=== PATIENT | male | born 1970 | race Two or more races ===

== ENCOUNTER 2018-03-15 21:59 | Emergency (ER) | payer MEDICAID ==
[~2018-03-15] VITALS: Ht 162.6 cm; Wt 54.4 kg
[2018-03-15 22:20] VITALS: BP 126/80
[2018-03-15] MEDS ORDERED: DiphenhydrAMINE 50mg/ml Inj IVP ONE (22:30)
[2018-03-15 22:58] LABS: APPEARANCE,URINE CLEAR; BILIRUBIN, URINE NEGATIVE (NEGATIVE); COLOR,URINE PALE YELLOW; GLUCOSE, URINE (UA) NEGATIVE (NEGATIVE); KETONES,URINE NEGATIVE (NEGATIVE); LEUKOCYTE ESTERASE ,URINE NEGATIVE (NEGATIVE); NITRITE,URINE NEGATIVE (NEGATIVE); PH,URINE 6 (4.5-8.0); PROTEIN,URINE NEGATIVE (NEGATIVE); UROBILINOGEN,URINE NORMAL MG/DL (0.0-1.0)
[2018-03-15 23:15] VITALS: BP_SYST 156; BP_SYST 161; BP_SYST 174; BP_DIAS 102; BP_DIAS 68; BP_DIAS 98
[2018-03-15 23:20] VITALS: BP 132/82
[2018-03-15 23:35] LABS: BASOPHILS % (AUTO) 1.1 % (0.0-2.0); EOSINOPHILS % (AUTO) 1.3 % (0.0-3.0); HEMATOCRIT 44.2 % (42.0-52.0); HEMOGLOBIN 15.4 G/DL (14.2-18.0); LYMPHOCYTES % (AUTO) 42.2 % (20.0-45.0); MEAN CORPUSCULAR VOLUME 87 FL (80-99); MONOCYTES % (AUTO) 8.6 % (1.0-10.0); NEUTROPHILS % (AUTO) 46.9 % (45.0-75.0); PLATELET COUNT 274 K/UL (150-450); RED BLOOD COUNT 5.06 M/UL (4.70-6.10); RED CELL DISTRIBUTION WIDTH 11.7 % (11.6-14.8); WHITE BLOOD COUNT 6.3 K/UL (4.8-10.8)
[2018-03-15 23:41] LABS: ANION GAP 8 mmol/L (5-15); BLOOD UREA NITROGEN 11 mg/dL (7-18); CALCIUM 8.8 MG/DL (8.5-10.1); CARBON DIOXIDE 26 MMOL/L (21-32); CHLORIDE 108 MMOL/L (98-107); CREATININE 0.9 MG/DL (0.55-1.30); POTASSIUM 4.1 MMOL/L (3.5-5.1); SODIUM 142 MMOL/L (136-145)
[2018-03-15 23:46] LABS: ALANINE AMINOTRANSFERASE 15 U/L (12-78); ALKALINE PHOSPHATASE 84 U/L (46-116); ASPARTATE AMINO TRANSFERASE 15 U/L (15-37); BILIRUBIN,TOTAL 0.2 MG/DL (0.2-1.0); CREATINE KINASE 74 U/L (26-308)
[2018-03-16 00:20] VITALS: BP 129/79
[2018-03-16] MEDS ORDERED: BENZTROPINE ME0.5 MG PO (02:05)
[2018-03-16] MEDS ORDERED: ZANTAC150 MG ORAL (02:05)
[2018-03-16] MEDS ORDERED: SEROQUEL400 MG ORAL (02:05)
[2018-03-16] MEDS ORDERED: MEGESTROL400 MG/11 PO (02:05)
[2018-03-16] MEDS ORDERED: REMERON30 M1 ORAL (02:05)
[2018-03-16] MEDS ORDERED: DIPHENHYDRAMINE25 M1 ORAL (02:05)
[2018-03-16 02:20] VITALS: BP 123/78
--- NOTE | 2018-03-16 03:29 | Emergency Room Report ---
History of Present Illness General Chief Complaint: General Complaint Source: Patient, Caregiver Present Illness HPI Patient presents with possible adverse reaction to new medication. Patient recently started Seroquel. 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 He states he feels dizzy and has fuzzy thinking. He also complains about weakness. There is no chest pain or palpitations. Denies headache. No abdominal pain or pain in extremities. H/O schizophrenia on multiple medications. Blind in L eye. Allergies: Coded Allergies: No Known Allergies (Unverified , 03/15/18) Patient History Past Medical History: see triage record, psych hx Social History: Reports: drug use; Denies: smoking Social History Narrative in rehab facility Reviewed Nursing Documentation: PMH: Agreed; PSxH: Agreed Nursing Documentation-PMH History Of Psychiatric Problem: Yes - depressive disorder Hx Neurological Problems: No - blind in left eye Review of Systems All Other Systems: negative except mentioned in HPI Physical Exam Vital Signs Date Time Temp Pulse Resp B/P (MAP) Pulse Ox O2 Delivery O2 Flow Rate FiO2 03/15/18 22:05 98.0 112 18 109/80 98 Room Air 98.1 Sp02 EP Interpretation: reviewed, normal General Appearance: well appearing, no apparent distress, GCS 15 Head: normocephalic Eyes: left eye abnormal EOM - dyscongugate gaze; bilateral eye Scleral Injection ENT: moist mucus membranes Neck: supple Respiratory: lungs clear, normal breath sounds Cardiovascular #1: regular rate, rhythm Cardiovascular #2: 2+ radial (R) Gastrointestinal: normal inspection, normal bowel sounds, non tender, no mass, non-distended Musculoskeletal: back normal, gait/station normal, normal range of motion Neurologic: other - dyscongugate gaze Psychiatric: depressed affect Skin: normal inspection, warm/dry Medical Decision Making Diagnostic Impression: Primary Impression: Adverse drug reaction Qualified Codes: T50.905A - Adverse effect of unspecified drugs, medicaments and biological substances, initial encounter Additional Impression: Amphetamine abuse ER Course Soon after IV hydration and benadryl, patient ambulatory and feels better. Laboratory Tests Test 03/15/18 22:45 White Blood Count 6.3 K/UL (4.8-10.8) Red Blood Count 5.06 M/UL (4.70-6.10) Hemoglobin 15.4 G/DL (14.2-18.0) Hematocrit 44.2 % (42.0-52.0) Mean Corpuscular Volume 87 FL (80-99) Mean Corpuscular Hemoglobin 30.5 PG (27.0-31.0) Mean Corpuscular Hemoglobin Concent 34.9 G/DL (32.0-36.0) Red Cell Distribution Width 11.7 % (11.6-14.8) Platelet Count 274 K/UL (150-450) Mean Platelet Volume 7.7 FL (6.5-10.1) Neutrophils (%) (Auto) 46.9 % (45.0-75.0) Lymphocytes (%) (Auto) 42.2 % (20.0-45.0) Monocytes (%) (Auto) 8.6 % (1.0-10.0) Eosinophils (%) (Auto) 1.3 % (0.0-3.0) Basophils (%) (Auto) 1.1 % (0.0-2.0) Urine Color Pale yellow Urine Appearance Clear Urine pH 6 (4.5-8.0) Urine Specific [place] 1.005 (1.005-1.035) Urine Protein Negative (NEGATIVE) Urine Glucose (UA) Negative (NEGATIVE) Urine Ketones Negative (NEGATIVE) Urine Occult Blood Negative (NEGATIVE) Urine Nitrite Negative (NEGATIVE) Urine Bilirubin Negative (NEGATIVE) Urine Urobilinogen Normal MG/DL (0.0-1.0) Urine Leukocyte Esterase Negative (NEGATIVE) Sodium Level 142 MMOL/L (136-145) Potassium Level 4.1 MMOL/L (3.5-5.1) Chloride Level 108 MMOL/L (98-107) H Carbon Dioxide Level 26 MMOL/L (21-32) Anion Gap 8 mmol/L (5-15) Blood Urea Nitrogen 11 mg/dL (7-18) Creatinine 0.9 MG/DL (0.55-1.30) Estimate Glomerular Filtration Rate > 60 mL/min (>60) Glucose Level 118 MG/DL (74-106) H Calcium Level 8.8 MG/DL (8.5-10.1) Total Bilirubin 0.2 MG/DL (0.2-1.0) Aspartate Amino Transferase (AST) 15 U/L (15-37) Alanine Aminotransferase (ALT) 15 U/L (12-78) Alkaline Phosphatase 84 U/L (46-116) Total Creatine Kinase 74 U/L (26-308) Troponin I 0.000 ng/mL (0.000-0.056) Total Protein 7.9 G/DL (6.4-8.2) Albumin 4.0 G/DL (3.4-5.0) Globulin 3.9 g/dL Albumin/Globulin Ratio 1.0 (1.0-2.7) Urine Opiates Screen Negative (NEGATIVE) Urine Barbiturates Screen Negative (NEGATIVE) Phencyclidine (PCP) Screen Negative (NEGATIVE) Urine Amphetamines Screen Positive (NEGATIVE) H Urine Benzodiazepines Screen Negative (NEGATIVE) Urine Cocaine Screen Negative (NEGATIVE) Urine Marijuana (THC) Screen Negative (NEGATIVE) EKG Diagnostic Results Rate: normal Rhythm: NSR ST Segments: other Rhythm Strip Diag. Results EP Interpretation: yes Rhythm: NSR, no PVC's, no ectopy Last Vital Signs Date Time Temp Pulse Resp B/P (MAP) Pulse Ox O2 Delivery O2 Flow Rate FiO2 03/16/18 05:50 97.8 68 15 118/72 98 Room Air 97.8 Status: improved Disposition: HOME, SELF-CARE Condition: Improved Referrals: [facility],REFERRING (PCP) Mikhail Snyder M.D. Mar 16, 2018 03:29
[2018-03-16 04:20] VITALS: BP 118/72
[2018-03-16 05:50] VITALS: BP 118/72
== END 2018-03-16 05:50 | disposition home or self-care (01) ==
LOC: EMR 22:24
DX: R07.89 Other chest pain (principal); R42 Dizziness and giddiness; T43.595A Adverse effect of other antipsychotics and neuroleptics, initial encounter; Y92.9 Unspecified place or not applicable; F15.10 Other stimulant abuse, uncomplicated; H54.40 Blindness, one eye, unspecified eye; F32.9 Major depressive disorder, single episode, unspecified; F20.9 Schizophrenia, unspecified
CPT/HCPCS: 36415; 80053; 80307; 81003; 82550; 84484; 85025; 93005; 96360; 96374; 99284; J1200